=== PATIENT | male | born 1970 | race Caucasian/White ===

== ENCOUNTER 2024-04-15 22:03 | Observation (INO) ==
[2024-04-15 22:32] LABS: Basophils # (auto) 0.03 K/uL (0.00-0.20); Basophils % (auto) 0.3 %; Eosinophils # (auto) 0.12 K/uL (0.00-0.50); Hematocrit (blood only) 43.4 % (42.0-52.0); Hemoglobin 15.4 g/dl (14.0-18.0); Immature Granulocytes # (auto) 0.03 K/uL (0.01-0.20); Immature Granulocytes % (auto) 0.3 %; Lymphocytes # (auto) 1.99 K/uL (1.20-3.40); Lymphocytes % (auto) 17.4 %; Mean Corpuscular Hemoglobin 31.2 pg (25.0-34.0); Mean Corpuscular Hgb Conc 35.5 g/dL (32.0-36.0); Mean Platelet Volume 9.5 fL (9.4-12.4); Monocytes # (auto) 0.82 K/uL (0.11-0.59); Monocytes % (auto) 7.2 %; Neutrophils # (auto) 8.47 K/uL (1.40-6.50); Neutrophils % (auto) 73.8 %; Platelet Count 269 K/uL (130-400); RDW Coefficient of Variation 12.5 % (11.5-14.5); RDW Standard Deviation 40.2 fL (36.4-46.3); Red Blood Count 4.93 M/uL (4.70-6.10); White Blood Count 11.46 K/ul (4.8-10.8)
[2024-04-15 22:51] LABS: Alanine Aminotransferase 22 U/L (7-52); Albumin Globulin Ratio 1.6 (0.9-2); Albumin Level 4.5 gm/dl (3.4-5.0); Alkaline Phosphatase 56 U/L (34-104); Anion Gap 10 (3-11); Aspartate Aminotransferase 23 U/L (13-39); Bilirubin,Total 1.2 mg/dl (0.2-1.0); Blood Urea Nitrogen 16 mg/dl (6-23); Calcium 9.2 mg/dl (8.6-10.3); Carbon Dioxide 24 mmol/L (21-32); Chloride 103 mmol/L (98-107); Est GFR (African American) 91.4 ml/min; Est GFR (Non-African American) 78.8 ml/min; Globulin 2.9 gm/dl (2.5-4.0); Glucose 130 mg/dl (70-99(Fasting)); Lipase 45 U/L (11-82); Potassium 3.7 mmol/L (3.5-5.1); Sodium 137 mmol/L (136-145); Total Protein 7.4 gm/dl (6.0-8.3)
[2024-04-15 22:56] LABS: iSTAT Hemoglobin 15.6 g/dl (14.0-18.0); iSTAT Ionized Calcium 1.18 mmol/l (1.12-1.32); iSTAT Potassium 4.1 mmol/L (3.3-5.0)
[2024-04-15] MEDS: OPTIRAY 320 125ml IV ONE (22:56)
[2024-04-15 22:57] LABS: Troponin I High Sensitivity < 2.3 pg/ml (0-20)
[2024-04-15] MEDS: HYDROmorphone INJ 0.5 MG/0.5 ML SYR IV STA (23:02)
[2024-04-15] MEDS: ACETAMINOPHEN 1,000 MG/100 ML VIAL IV STA (23:03)
--- NOTE | 2024-04-15 23:21 | Emergency Department Note ---
Impression & Plan Atypical chest pain, Bradycardia ED Provider Note NAME: VALE BARRIOS AGE: 54 SEX: M : 1970 ARRIVES VIA: Walk-In INFORMANT: Patient, ED PROVIDER(S): Doe Coelho MD CHIEF COMPLAINT: Severe right arm pain HPI: This is a 54-year-old male presenting for right arm/shoulder pain. Patient to wrapping with his family later today. He thinks may have injured at this point. He notes this pain is very severe, he has had previous rotator cuff injury but this was not as severe as his current pain. He is currently diaphoretic, clutching his right chest/shoulder. He has extreme tenderness to the right shoulder joint. He notes pain in his chest as well. ROS: See above HPI for pertinent positives & negatives. A total of 10 systems reviewed and were otherwise negative. PHYSICAL EXAMINATION: General: Moderately uncomfortable, diaphoretic Head: Normocephalic and atraumatic Eyes: Normal inspection, extraocular muscles intact Ear, nose, throat: Normal external exam Neck: Normal range of motion Respiratory: lungs clear to auscultation bilaterally Cardiovascular: Regular rate/rhythm, no murmur GI: soft, nontender, no guarding or rebound Extremities: Extreme right shoulder pain with palpation Neuro: The patient awake and alert, appropriately conversive, no focal deficits, symmetric faces Skin: Warm, dry, and intact MEDICAL DECISION MAKING: This is a 54-year-old male presenting for right shoulder/arm pain. At this time he has 2+ pulses, neurovascular intact with some significant right shoulder pain. I called x-ray for immediate bedside imaging. -Chest Xray independently interpreted by me showing no pneumothorax, focal opacity, pleural effusions or widened mediastinum. -Shoulder x-ray as independent read by me does reveal a possible right AC separation -In an abundance of precaution with patient's extreme pain and symptoms, CTA dissection protocol was ordered of the chest. -Upon my initial read, I do not see a dissection -Official read reveals no intrathoracic abnormality including dissection -Patient given 0.5 mg of IV Dilaudid for pain -After administration of pain medication, patient became significant bradycardic into the high 30s and low 40s. He was diaphoretic, nauseous. Consider this as a vasovagal reaction to medication. Was given Reglan for nausea -During the bradycardia episode, patient on the monitor had with patient possible heart block with idioventricular rhythm, multiple beats without P waves, only ventricular beats. Patient placed on pads with crash cart nearby. -This is spontaneously resolved shortly afterwards. -Labs are reviewed showing a slight leukocytosis at 11.46 but otherwise no severe electrolyte abnormalities. No troponin elevation. -Due to this possible arrhythmia/bradycardia, will admit for further observation. Discussed case with Dr. Galdamez, hospitalist Differential diagnosis: ACS, dissection, PE, shoulder injury, rotator cuff tear, AC separation ER treatment provided: See below Diagnostics interpreted by me: ECG: ECG independently interpreted by me with normal sinus rhythm, rate of 69, normal axis, normal CT, normal QRS, normal QTc, no ST segment elevations consistent with STEMI criteria Cardiac Monitoring: An order was placed for continuous cardiac monitoring. The monitor shows a rate of with rhythm. Laboratory studies: As stated above and show below. Imaging studies: See below. Critical Care Note: I have personally spent 32 minutes of critical care time in the direct management of this patient. This includes bedside care, interpretation of diagnostic studies, and testing, discussion with consultants, patient, and family members, and other required patient management activities. This 32 minutes is in excess of all separately billable procedures. Past Med/Surg History Problem List (Updated 04/16/24 @ 01:14 by Doe Coelho MD) Bradycardia (Acute) Atypical chest pain (Acute) Social History Smoking Status: Current some day smoker Preferred Language: Zambian Feels Safe at Home: Yes Allergies Allergies Allergy/AdvReac Type Severity Reaction Status Date / Time No Known Allergies Allergy Verified 04/16/24 01:09 Home Meds Home Medications Medication Instructions Recorded Confirmed No Known Home Medications 04/16/24 04/16/24 Results & Data (ED) Vital Signs Vital Signs - 24 hr 04/15/24 22:05 04/15/24 22:12 04/15/24 22:18 Temperature 36.6 C Temperature Source Temporal Artery Scan Pulse Rate 77 71 Pulse Rate from SpO2 Sensor Respiratory Rate 22 Respiratory Effort / Characteristics Non-Labored Respiratory Depth Normal Blood Pressure 145/79 H Blood Pressure Mean 101 Pulse Oximetry 95 92 Oxygen Delivery Method Room Air Room Air Oxygen Flow Rate Sepsis Recent Fever Within 48 Hours No Sepsis New/Unexplained Change in Mental Status No Sepsis Action Taken by Nursing No Action Required Oxygen Flow Rate - Titration Pulse Oximetry Post Tiitration 04/15/24 23:12 04/15/24 23:25 04/15/24 23:26 Temperature Temperature Source Pulse Rate 72 44 L 47 L Pulse Rate from SpO2 Sensor 72 Respiratory Rate 17 Respiratory Effort / Characteristics Respiratory Depth Blood Pressure Blood Pressure Mean Pulse Oximetry 98 Oxygen Delivery Method Oxygen Flow Rate Sepsis Recent Fever Within 48 Hours Sepsis New/Unexplained Change in Mental Status Sepsis Action Taken by Nursing Oxygen Flow Rate - Titration Pulse Oximetry Post Tiitration 04/15/24 23:27 04/15/24 23:30 04/15/24 23:31 Temperature Temperature Source Pulse Rate 42 L 74 71 Pulse Rate from SpO2 Sensor 42 L 75 Respiratory Rate 18 26 H Respiratory Effort / Characteristics Respiratory Depth Blood Pressure 105/78 Blood Pressure Mean 87 Pulse Oximetry 88 L 96 Oxygen Delivery Method Oxygen Flow Rate Sepsis Recent Fever Within 48 Hours Sepsis New/Unexplained Change in Mental Status Sepsis Action Taken by Nursing Oxygen Flow Rate - Titration Pulse Oximetry Post Tiitration 04/15/24 23:43 04/16/24 00:00 Temperature Temperature Source Pulse Rate Pulse Rate from SpO2 Sensor 66 Respiratory Rate 16 Respiratory Effort / Characteristics Respiratory Depth Blood Pressure 122/75 Blood Pressure Mean 90 Pulse Oximetry 88 L 94 Oxygen Delivery Method Nasal Cannula Nasal Cannula Oxygen Flow Rate 0 2 Sepsis Recent Fever Within 48 Hours Sepsis New/Unexplained Change in Mental Status Sepsis Action Taken by Nursing Oxygen Flow Rate - Titration 2 Pulse Oximetry Post Tiitration 94 Laboratory Data 04/15/24 22:16 04/15/24 22:16 Lab Results 04/15/24 04/15/24 Range/Units 22:16 22:44 WBC 11.46 H (4.8-10.8) K/ul RBC 4.93 (4.70-6.10) M/uL Hgb 15.4 (14.0-18.0) g/dl POC Hgb 15.6 (14.0-18.0) g/dl Hct 43.4 (42.0-52.0) % POC Hct 46 (42-52) % MCV 88.0 (80.0-100.0) fL MCH 31.2 (25.0-34.0) pg MCHC 35.5 (32.0-36.0) g/dL RDW Std Deviation 40.2 (36.4-46.3) fL RDW Coeff of Carin 12.5 (11.5-14.5) % Plt Count 269 (130-400) K/uL MPV 9.5 (9.4-12.4) fL Immature Gran % (Auto) 0.3 % Neut % (Auto) 73.8 % Lymph % (Auto) 17.4 % [place] % (Auto) 7.2 % Eos % (Auto) 1.0 % Baso % (Auto) 0.3 % Neut # (Auto) 8.47 H (1.40-6.50) K/uL Lymph # (Auto) 1.99 (1.20-3.40) K/uL [place] # (Auto) 0.82 H (0.11-0.59) K/uL Eos # (Auto) 0.12 (0.00-0.50) K/uL Baso # (Auto) 0.03 (0.00-0.20) K/uL Immature Gran # (Auto) 0.03 (0.01-0.20) K/uL POC Sodium 137 (135-144) mmol/L Sodium 137 (136-145) mmol/L POC Potassium 4.1 (3.3-5.0) mmol/L Potassium 3.7 (3.5-5.1) mmol/L POC Chloride 103 (101-112) mmol/L Chloride 103 (98-107) mmol/L Carbon Dioxide 24 (21-32) mmol/L POC Total CO2 24 (24-31) mmol/L Anion Gap 10 (3-11) POC Anion Gap 15.0 L (16-25) mmol/L POC BUN 16 (7-18) mg/dl BUN 16 (6-23) mg/dl Creatinine 1.07 (0.6-1.4) mg/dl POC Creatinine 1.0 (0.6-1.3) mg/dl Est Cr Clr Drug Dosing Not Reportable Est GFR ( Amer) 91.4 ml/min Est GFR (Non-Af Amer) 78.8 ml/min BUN/Creatinine Ratio 15.0 (10-20) Glucose 130 H (70-99(Fasting)) mg/dl POC Glucose (other) 138 H (70-99) mg/dl Calcium 9.2 (8.6-10.3) mg/dl POC Ioniz Calcium Alyx 1.18 (1.12-1.32) mmol/l Magnesium 1.9 (1.7-2.4) mg/dl Total Bilirubin 1.2 H (0.2-1.0) mg/dl AST 23 (13-39) U/L ALT 22 (7-52) U/L Alkaline Phosphatase 56 (34-104) U/L Troponin I High Sens < 2.3 (0-20) pg/ml Total Protein 7.4 (6.0-8.3) gm/dl Albumin 4.5 (3.4-5.0) gm/dl Globulin 2.9 (2.5-4.0) gm/dl Albumin/Globulin Ratio 1.6 (0.9-2) Lipase 45 (11-82) U/L TSH 1.124 (0.300-4.500) uIu/ml Administered Medications Discontinued Medications Hydromorphone HCl (Hydromorphone Inj 0.5 Mg/0.5 Ml Syr) 0.5 mg IV NOW STA Stop: 04/15/24 22:46 Last Admin: 04/15/24 23:02 Dose: 0.5 mg Documented By: AUSTIN Acetaminophen (Ofirmev) 1,000 mg in 100 mls @ 400 mls/hr IV NOW STA Stop: 04/15/24 23:00 Last Infusion: 04/15/24 23:46 Dose: Infused Documented By: Admin: 04/15/24 23:03 Dose: 400 mls/hr Documented By: AUSTIN Ioversol (Optiray 320 125ml) 125 ml IV ONCE ONE Stop: 04/15/24 22:57 Last Admin: 04/15/24 22:56 Dose: 120 ml Documented By: CAMILLE Metoclopramide HCl (Metoclopramide Hcl Inj 5 Mg/Ml 2 Ml Vial) Confirm Administered Dose 10 mg .ROUTE .STK-MED ONE Stop: 04/15/24 23:31 Last Admin: 04/15/24 23:31 Dose: 10 mg Documented By: AUSTIN Imaging Data Radiologist's Impression: Chest CTA 04/15/24 22:41 Exam(s): CTA CHEST W/WO Contrast IV Amt: 120 ML OPTIRAY 320 EXAM: CT Angiography Chest Without and With Intravenous Contrast CLINICAL HISTORY: Reason for exam: Dissection, R shoulder/neck pain. TECHNIQUE: Axial computed tomographic angiography images of the chest without and with intravenous contrast. CTDI is 28 mGy and DLP is 1910 mGy-cm. Automated exposure control was utilized for the study. A dose lowering technique was utilized adhering to the principles of ALARA. MIP reconstructed images were created and reviewed. CONTRAST: Patient received 120 ML OPTIRAY 320 of IV contrast COMPARISON: No relevant prior studies available. FINDINGS: Pulmonary arteries: Adequate pulmonary artery opacification. Borderline enlarged central pulmonary artery suggesting mild pulmonary arterial hypertension. No evidence of pulmonary embolism. Aorta: No aortic intramural hematoma, aneurysm, or dissection. Bovine aortic arch branch anatomy with patent great vessels. Lungs: Unremarkable. No airspace consolidation. No pulmonary mass. Pleural space: Unremarkable. No pleural effusion. No pneumothorax. Heart: No cardiomegaly. Coronary artery atherosclerosis. No significant RV strain. No pericardial effusion. Thyroid: Unremarkable. Normal thyroid gland. Bones/joints: No acute fracture. No dislocation. Soft tissues: Unremarkable. Lymph nodes: Unremarkable. No lymphadenopathy. Liver: Multiple benign hepatic cysts. Additional subcentimeter hepatic lesions which are too small to characterize. IMPRESSION: No acute findings. No evidence of aortic aneurysm or dissection. Electronically signed by: Bartolo Bullock M.D. 04/15/24 23:23 PM Discharge Plan Visit Data Chief Complaint: Chest Pain Stated Complaint: CHEST PAIN, RT ARM PAIN, LIGHTHEADED ED Provider: Doe Coelho Discharge Problem: Atypical chest pain, Bradycardia Forms Stand Alone Forms: [employer] Prescriptions Prescriptions: No Action No Known Home Medications Referrals Referrals: PCP,NO [Physician] -
--- NOTE | 2024-04-15 23:24 | CT Scan Report ---
Exam(s): CTA CHEST W/WO Contrast IV Amt: 120 ML OPTIRAY 320 EXAM: CT Angiography Chest Without and With Intravenous Contrast CLINICAL HISTORY: Reason for exam: Dissection, R shoulder/neck pain. TECHNIQUE: Axial computed tomographic angiography images of the chest without and with intravenous contrast. CTDI is 28 mGy and DLP is 1910 mGy-cm. Automated exposure control was utilized for the study. A dose lowering technique was utilized adhering to the principles of ALARA. MIP reconstructed images were created and reviewed. CONTRAST: Patient received 120 ML OPTIRAY 320 of IV contrast COMPARISON: No relevant prior studies available. FINDINGS: Pulmonary arteries: Adequate pulmonary artery opacification. Borderline enlarged central pulmonary artery suggesting mild pulmonary arterial hypertension. No evidence of pulmonary embolism. Aorta: No aortic intramural hematoma, aneurysm, or dissection. Bovine aortic arch branch anatomy with patent great vessels. Lungs: Unremarkable. No airspace consolidation. No pulmonary mass. Pleural space: Unremarkable. No pleural effusion. No pneumothorax. Heart: No cardiomegaly. Coronary artery atherosclerosis. No significant RV strain. No pericardial effusion. Thyroid: Unremarkable. Normal thyroid gland. Bones/joints: No acute fracture. No dislocation. Soft tissues: Unremarkable. Lymph nodes: Unremarkable. No lymphadenopathy. Liver: Multiple benign hepatic cysts. Additional subcentimeter hepatic lesions which are too small to characterize. IMPRESSION: No acute findings. No evidence of aortic aneurysm or dissection. Electronically signed by: Bartolo Bullock M.D. 04/15/24 23:23 PM
[2024-04-15] MEDS: METOCLOPRAMIDE HCL INJ 5 MG/ML 2 ML VIAL ONE (23:31)
[2024-04-16] MEDS ORDERED: PROMETHAZINE HCL 12.5 MG in SODIUM CHLORIDE 0.9% 50 ML IV PRN (00:31)
[2024-04-16] MEDS ORDERED: oxyCODONE HCL IR 5 MG TAB (IMMEDIATE RELEASE) PO PRN (00:31)
[2024-04-16] MEDS ORDERED: ACETAMINOPHEN 325 MG TAB PO PRN (00:31)
[2024-04-16] MEDS ORDERED: KETOROLAC TROMETHAMINE 15 MG/ML VIAL IM PRN (00:32)
[2024-04-16 00:55] LABS: Magnesium 1.9 mg/dl (1.7-2.4)
[2024-04-16 01:11] LABS: Thyroid Stimulating Hormone 1.124 uIu/ml (0.300-4.500)
[2024-04-16] MEDS: Patient's ALLERGY Info needs ENTERED STA (01:18)
--- NOTE | 2024-04-16 01:56 | History & Physical Report ---
Date of Service April 16, 2024 Assessment & Plan (1) Bradycardia: Plan: transient bradycardia possible vagal reaction following nausea symptoms from Dilaudid Patient currently comfortable Right shoulder pain Possible RCT injury Past tobacco abuse OBS PCU Hold Dilaudid for now Atropine as needed symptomatic bradycardia Cardiology consult Re: Symptomatic bradycardia Orthopedics consult Re: Right shoulder pain DVT prophylaxis. Lovenox subcu Full code Text document was generated using MYR voice recognition software. It may contain grammatical or spelling errors. Kindly contact undersigned for clarification of any documentation item in q uestion. History of Present Illness Chief Complaint: Right shoulder pain Primary Care Provider: TORRIE LOERA History obtained from patient and records. Medical history significant for past tobacco abuse. 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 Achy right shoulder pain radiating to the chest yesterday similar to rotator cuff tear on the left shoulder in the past. Possibly related to kayaking activity with family over the weekend. No shortness of breath, no fever, no chills no headache. Patient consulted ER last night. Patient became nauseous 30 minutes after Dilaudid administration at the ER. Heart rate 30s to 40s. Junctional bradycardia as per ekg monitor tech Patient felt like he was going to pass out. Denies chest pain or SOB. Patient looked pale and diaphoretic as per staff. Patient currently comfortable. Heart rate 60s. 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 [employer] Allergies Allergy/AdvReac Type Severity Reaction Status Date / Time hydromorphone [From Dilaudid] AdvReac Intermediate nausea Verified 04/16/24 05:11 Home Medications Medication Instructions Recorded Confirmed Type No Known Home Medications 04/16/24 04/16/24 History Past Med/Surg History Problem List (Updated 04/16/24 @ 01:14 by Doe Coelho MD) Bradycardia (Acute) Atypical chest pain (Acute) Social History Smoking Status: Former smoker Preferred Language: Nepali Communication Ability: Effective Food Technician Required: No Beliefs That Will Affect Care: None Current Living Situation: Alone Feels Safe at Home: Yes Assistive Devices: None Review of Systems Review of Systems: As per HPI, all other systems reviewed and negative Physical Exam Physical Exam: GENERAL: Comfortable, pleasant, obese, no respiratory distress SKIN: Normal color, warm HEENT: Partial alopecia, pink palpebral conjunctivae, no ptosis, dry buccal mucosa NECK : Supple, no tenderness CHEST : CTA, no tenderness HEART : RRR, no obvious murmurs ABDOMEN: Some distention, nontender EXTREMITIES : No LE swelling/tenderness, sling over RUE, RUE shoulder tenderness NEUROLOGIC : Coherent, no facial asymmetry, no other gross focality Results & Data Results & Data Vital Signs (Past 12 Hours) Vital Signs Temp Pulse Resp BP Pulse Ox O2 Del Method O2 Flow Rate 04/16/24 00:00 16 122/75 94 Nasal Cannula 2 04/15/24 23:43 88 L Nasal Cannula 0 04/15/24 23:31 71 04/15/24 23:30 74 26 H 105/78 96 04/15/24 23:27 42 L 18 88 L 04/15/24 23:26 47 L 04/15/24 23:25 44 L 04/15/24 23:12 72 17 98 04/15/24 22:18 71 04/15/24 22:12 92 Room Air 04/15/24 22:05 36.6 C 77 22 145/79 H 95 Room Air Laboratory Results Laboratory Results WBC 11.46 K/ul (4.8-10.8) H 04/15/24 22:16 RBC 4.93 M/uL (4.70-6.10) 04/15/24 22:16 Hgb 15.4 g/dl (14.0-18.0) 04/15/24 22:16 POC Hgb 15.6 g/dl (14.0-18.0) 04/15/24 22:44 Hct 43.4 % (42.0-52.0) 04/15/24 22:16 POC Hct 46 % (42-52) 04/15/24 22:44 MCV 88.0 fL (80.0-100.0) 04/15/24 22:16 MCH 31.2 pg (25.0-34.0) 04/15/24 22:16 MCHC 35.5 g/dL (32.0-36.0) 04/15/24 22:16 RDW Std Deviation 40.2 fL (36.4-46.3) 04/15/24 22:16 RDW Coeff of Carin 12.5 % (11.5-14.5) 04/15/24 22:16 Plt Count 269 K/uL (130-400) 04/15/24 22:16 MPV 9.5 fL (9.4-12.4) 04/15/24 22:16 Immature Gran % (Auto) 0.3 % 04/15/24 22:16 Neut % (Auto) 73.8 % 04/15/24 22:16 Lymph % (Auto) 17.4 % 04/15/24 22:16 [place] % (Auto) 7.2 % 04/15/24 22:16 Eos % (Auto) 1.0 % 04/15/24 22:16 Baso % (Auto) 0.3 % 04/15/24 22:16 Neut # (Auto) 8.47 K/uL (1.40-6.50) H 04/15/24 22:16 Lymph # (Auto) 1.99 K/uL (1.20-3.40) 04/15/24 22:16 [place] # (Auto) 0.82 K/uL (0.11-0.59) H 04/15/24 22:16 Eos # (Auto) 0.12 K/uL (0.00-0.50) 04/15/24 22:16 Baso # (Auto) 0.03 K/uL (0.00-0.20) 04/15/24 22:16 Immature Gran # (Auto) 0.03 K/uL (0.01-0.20) 04/15/24 22:16 POC Sodium 137 mmol/L (135-144) 04/15/24 22:44 Sodium 137 mmol/L (136-145) 04/15/24 22:16 POC Potassium 4.1 mmol/L (3.3-5.0) 04/15/24 22:44 Potassium 3.7 mmol/L (3.5-5.1) 04/15/24 22:16 POC Chloride 103 mmol/L (101-112) 04/15/24 22:44 Chloride 103 mmol/L (98-107) 04/15/24 22:16 Carbon Dioxide 24 mmol/L (21-32) 04/15/24 22:16 POC Total CO2 24 mmol/L (24-31) 04/15/24 22:44 Anion Gap 10 (3-11) 04/15/24 22:16 POC Anion Gap 15.0 mmol/L (16-25) L 04/15/24 22:44 POC BUN 16 mg/dl (7-18) 04/15/24 22:44 BUN 16 mg/dl (6-23) 04/15/24 22:16 Creatinine 1.07 mg/dl (0.6-1.4) 04/15/24 22:16 POC Creatinine 1.0 mg/dl (0.6-1.3) 04/15/24 22:44 Est Cr Clr Drug Dosing Not Reportable 04/15/24 22:16 Est GFR ( Amer) 91.4 ml/min 04/15/24 22:16 Est GFR (Non-Af Amer) 78.8 ml/min 04/15/24 22:16 BUN/Creatinine Ratio 15.0 (10-20) 04/15/24 22:16 Glucose 130 mg/dl (70-99(Fasting)) H 04/15/24 22:16 POC Glucose (other) 138 mg/dl (70-99) H 04/15/24 22:44 Calcium 9.2 mg/dl (8.6-10.3) 04/15/24 22:16 POC Ioniz Calcium Alyx 1.18 mmol/l (1.12-1.32) 04/15/24 22:44 Magnesium 1.9 mg/dl (1.7-2.4) 04/15/24 22:16 Total Bilirubin 1.2 mg/dl (0.2-1.0) H 04/15/24 22:16 AST 23 U/L (13-39) 04/15/24 22:16 ALT 22 U/L (7-52) 04/15/24 22:16 Alkaline Phosphatase 56 U/L (34-104) 04/15/24 22:16 Troponin I High Sens < 2.3 pg/ml (0-20) 04/15/24 22:16 Total Protein 7.4 gm/dl (6.0-8.3) 04/15/24 22:16 Albumin 4.5 gm/dl (3.4-5.0) 04/15/24 22:16 Globulin 2.9 gm/dl (2.5-4.0) 04/15/24 22:16 Albumin/Globulin Ratio 1.6 (0.9-2) 04/15/24 22:16 Lipase 45 U/L (11-82) 04/15/24 22:16 TSH 1.124 uIu/ml (0.300-4.500) 04/15/24 22:16 Impressions Chest CTA 04/15/24 22:41 Exam(s): CTA CHEST W/WO Contrast IV Amt: 120 ML OPTIRAY 320 EXAM: CT Angiography Chest Without and With Intravenous Contrast CLINICAL HISTORY: Reason for exam: Dissection, R shoulder/neck pain. TECHNIQUE: Axial computed tomographic angiography images of the chest without and with intravenous contrast. CTDI is 28 mGy and DLP is 1910 mGy-cm. Automated exposure control was utilized for the study. A dose lowering technique was utilized adhering to the principles of ALARA. MIP reconstructed images were created and reviewed. CONTRAST: Patient received 120 ML OPTIRAY 320 of IV contrast COMPARISON: No relevant prior studies available. FINDINGS: Pulmonary arteries: Adequate pulmonary artery opacification. Borderline enlarged central pulmonary artery suggesting mild pulmonary arterial hypertension. No evidence of pulmonary embolism. Aorta: No aortic intramural hematoma, aneurysm, or dissection. Bovine aortic arch branch anatomy with patent great vessels. Lungs: Unremarkable. No airspace consolidation. No pulmonary mass. Pleural space: Unremarkable. No pleural effusion. No pneumothorax. Heart: No cardiomegaly. Coronary artery atherosclerosis. No significant RV strain. No pericardial effusion. Thyroid: Unremarkable. Normal thyroid gland. Bones/joints: No acute fracture. No dislocation. Soft tissues: Unremarkable. Lymph nodes: Unremarkable. No lymphadenopathy. Liver: Multiple benign hepatic cysts. Additional subcentimeter hepatic lesions which are too small to characterize. IMPRESSION: No acute findings. No evidence of aortic aneurysm or dissection. Electronically signed by: Bartolo Bullock M.D. 04/15/24 23:23 PM Diagnostic Findings EKG as per my interpretation : Rate 65, NSR, normal axis, no ischemia
[2024-04-16] MEDS ORDERED: ATROPINE SULFATE 0.1 MG/ML 10ML SYR IV PRN (01:59)
[2024-04-16] MEDS: KETOROLAC TROMETHAMINE 15 MG/ML VIAL IV PRN (02:08)
[2024-04-16] MEDS: NSS + 20MEQ KCL 20 MEQ/1,000 ML BAG IV ONE (02:17)
[2024-04-16] MEDS: MAGNESIUM SULFATE / D5W 1 GM/100 ML BAG IV ONE (02:17)
[2024-04-16 04:02] LABS: Basophils # (auto) 0.02 K/uL (0.00-0.20); Basophils % (auto) 0.2 %; Eosinophils # (auto) 0.02 K/uL (0.00-0.50); Eosinophils % (auto) 0.2 %; Hematocrit (blood only) 43.4 % (42.0-52.0); Immature Granulocytes # (auto) 0.02 K/uL (0.01-0.20); Immature Granulocytes % (auto) 0.2 %; Lymphocytes # (auto) 1.52 K/uL (1.20-3.40); Lymphocytes % (auto) 16.3 %; Mean Corpuscular Hemoglobin 30.7 pg (25.0-34.0); Mean Corpuscular Hgb Conc 34.6 g/dL (32.0-36.0); Mean Corpuscular Volume 88.9 fL (80.0-100.0); Mean Platelet Volume 9.5 fL (9.4-12.4); Monocytes # (auto) 0.67 K/uL (0.11-0.59); Monocytes % (auto) 7.2 %; Neutrophils % (auto) 75.9 %; Platelet Count 256 K/uL (130-400); RDW Coefficient of Variation 12.6 % (11.5-14.5); RDW Standard Deviation 41.1 fL (36.4-46.3); Red Blood Count 4.88 M/uL (4.70-6.10); White Blood Count 9.35 K/ul (4.8-10.8)
[2024-04-16 04:05] LABS: BUN Creatinine Ratio 18.6 (10-20); Calcium 8.8 mg/dl (8.6-10.3); Creatinine Clr Calc Pharmacy 105.9 ml/min; Est GFR (African American) 102.9 ml/min; Est GFR (Non-African American) 88.8 ml/min; Potassium 4.2 mmol/L (3.5-5.1)
--- NOTE | 2024-04-16 07:00 | XRay Report ---
XR chest 1V portable HISTORY: 54 years-old Male Chest pain, nonspecific COMPARISON: CTA chest of same day TECHNIQUE: AP view of the chest FINDINGS: Cardiomediastinal and hilar silhouettes are within normal limits. No pneumothorax, pleural effusion, airspace consolidation or pulmonary edema. Bones appear grossly intact. IMPRESSION: No acute process. ACT 112: Negative or not required by law. The above report was generated using voice recognition software. It may contain grammatical, syntax o r spelling errors. Electronically signed by: Manuelito Rubin M.D. 04/16/2024 6:58 AM
[2024-04-16 07:07] LABS: Estimated Average Glucose 108 mg/dl; Hemoglobin A1C 5.4 % (4.5-5.6)
--- NOTE | 2024-04-16 07:07 | XRay Report ---
XR shoulder RT min 2V routine HISTORY: 54 years-old Male pain acute pain of the right shoulder without reported trauma COMPARISON: CTA chest of same day TECHNIQUE: 2 views of the right shoulder FINDINGS: Moderate degeneration of the AC joint. No significant glenohumeral osteoarthritis. No acute fracture, dislocation or osseous erosion. The imaged lung giang appear clear. IMPRESSION: 1. No acute fracture or dislocation. 2. Moderate osteoarthritis of the AC joint. ACT 112: Negative or not required by law. The above report was generated using voice recognition software. It may contain grammatical, syntax o r spelling errors. Electronically signed by: Manuelito Rubin M.D. 04/16/2024 7:05 AM
--- NOTE | 2024-04-16 07:39 | Orthopedic Consultation ---
<Statement entered by Isai Finney MD - 04/16/24 08:33> Images and the case were reviewed. I discussed this directly with the physician help desk assistant. I agree with the note. Likely this is a combination of bursitis and AC arthritis from overuse. Can be managed with anti-inflammatories, rest, ice. Consider for oral 10 or 12-day prednisone taper to manage acute pain until he can return to outpatient care. Date of Service April 16, 2024 Assessment & Plan (1) Acute pain of right shoulder: - Exam limited due to patient pain, however does seem to have discomfort in the AC joint. -White count has been improving since yesterday. -No urgent orthopedic intervention indicated at this time. May follow-up as an outpatient. He does live in [place], and is planning to follow-up back home. -Sling for comfort at this time. -If tolerated, would recommend oral steroids upon discharge. -X-rays reassuring for no acute abnormality. May increase his range of motion as tolerated. -Thank you for the consult. Please reach out to orthopedics any other questions or concerns. History of Present Illness Reason for Consultation: acute right shoulder pain Requesting Physician: . Attending Physician: Antonio Bowman MD Vini is a [id number] 54-year-old male who reports to the emergency department yesterday on 04/15/2024 for acute right shoulder pain. He states that he does not recall any specific injury to the right shoulder or any right shoulder issues prior to this, however he does state that the shoulder pain gradually came on and got worse Monday morning into Monday evening prompting him to report to the emergency department on Monday. He states that he has had shoulder issues in his left shoulder in the past where he had a rotator cuff tear, however this does feel different and is more intense in pain. He states that he specifically has issues with range of motion of his right shoulder. He does state that this past weekend, he was rafting/tubing with his kids who are in their early teens and feels that he did get pulled around quite a bit. He is unsure if this elicited any discomfort. While in the emergency department yesterday, he did have a bradycardic episode. He is currently being held for observation in light of the cardiac issues. He feels it is from the pain medications that he was given. At today's visit, he states he is feeling well. States that his shoulder pain is slowly improving but is still quite bothersome to him. He states that he lives in [facility] and is here on work. 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 He states that he will be going home in 1 week and is planning to follow-up with his primary care/orthopedic provider back home. He denies any fever, chills or constitutional symptoms. He also denies any recent tick bites, history of Lyme disease. He denies any numbness or tingling in the right upper extremity. Allergies Allergy/AdvReac Type Severity Reaction Status Date / Time hydromorphone [From Dilaudid] AdvReac Intermediate nausea Verified 04/16/24 05:11 Home Medications Medication Instructions Recorded Confirmed Type No Known Home Medications 04/16/24 04/16/24 History Past Med/Surg History Problem List (Updated 04/16/24 @ 07:51 by Cassie Pandey PA-C) Acute pain of right shoulder Bradycardia (Acute) Atypical chest pain (Acute) Social History Smoking Status: Former smoker Preferred Language: Czech Communication Ability: Effective Airveyor Operator Required: No Beliefs That Will Affect Care: None Current Living Situation: Alone Feels Safe at Home: Yes Assistive Devices: None Review of Systems All systems reviewed & are unremarkable except as noted in HPI & below. Physical Exam Upon my visit, the patient has the lights off and is resting in the hospital bed. Vital signs are stable. He does not appear ill, pale or diaphoretic at my visit. He is able to sit up for a shoulder exam. Please see shoulder exam below. Constitutional General: Alert and oriented. In no acute distress. Musculoskeletal Right shoulder: Exam was limited due to patient pain. Inspection unremarkable. No obvious deformities noted. He is quite tender to the AC joint as well as the lateral shoulder. Did perform passive and active assisted range of motion. With active assisted range of motion, he has much discomfort with cross body adduction. He is able to perform external rotation independently without discomfort. I was able to guide him with forward flexion and abduction. We were able to get him to about 110 degrees abduction with some discomfort. He felt the pain was less significant when I guided him with range of motion. Strength testing did show deficits, however difficult to say if this is due to the patient's pain or actual notable rotator cuff weakness. Sensation intact. Distal pulses palpated. Capillary for less than 3 seconds. Results & Data Results & Data Laboratory Results . Laboratory Results - last 24 hr 04/15/24 04/15/24 04/16/24 22:16 22:44 03:34 WBC 11.46 H 9.35 RBC 4.93 4.88 Hgb 15.4 15.0 POC Hgb 15.6 Hct 43.4 43.4 POC Hct 46 MCV 88.0 88.9 MCH 31.2 30.7 MCHC 35.5 34.6 RDW Std Deviation 40.2 41.1 RDW Coeff of Carin 12.5 12.6 Plt Count 269 256 MPV 9.5 9.5 Immature Gran % (Auto) 0.3 0.2 Neut % (Auto) 73.8 75.9 Lymph % (Auto) 17.4 16.3 [place] % (Auto) 7.2 7.2 Eos % (Auto) 1.0 0.2 Baso % (Auto) 0.3 0.2 Neut # (Auto) 8.47 H 7.10 H Lymph # (Auto) 1.99 1.52 [place] # (Auto) 0.82 H 0.67 H Eos # (Auto) 0.12 0.02 Baso # (Auto) 0.03 0.02 Immature Gran # (Auto) 0.03 0.02 POC Sodium 137 Sodium 137 135 L POC Potassium 4.1 Potassium 3.7 4.2 POC Chloride 103 Chloride 103 103 Carbon Dioxide 24 25 POC Total CO2 24 Anion Gap 10 7 POC Anion Gap 15.0 L POC BUN 16 BUN 16 18 Creatinine 1.07 0.97 POC Creatinine 1.0 Est Cr Clr Drug Dosing Not Reportable 105.9 Est GFR ( Amer) 91.4 102.9 Est GFR (Non-Af Amer) 78.8 88.8 BUN/Creatinine Ratio 15.0 18.6 Glucose 130 H 144 H POC Glucose (other) 138 H Estimat Average Glucose Hemoglobin A1c Calcium 9.2 8.8 POC Ioniz Calcium Alyx 1.18 Magnesium 1.9 Total Bilirubin 1.2 H AST 23 ALT 22 Alkaline Phosphatase 56 Troponin I High Sens < 2.3 Total Protein 7.4 Albumin 4.5 Globulin 2.9 Albumin/Globulin Ratio 1.6 Lipase 45 TSH 1.124 04/16/24 Unknown WBC RBC Hgb POC Hgb Hct POC Hct MCV MCH MCHC RDW Std Deviation RDW Coeff of Carin Plt Count MPV Immature Gran % (Auto) Neut % (Auto) Lymph % (Auto) [place] % (Auto) Eos % (Auto) Baso % (Auto) Neut # (Auto) Lymph # (Auto) [place] # (Auto) Eos # (Auto) Baso # (Auto) Immature Gran # (Auto) POC Sodium Sodium POC Potassium Potassium POC Chloride Chloride Carbon Dioxide POC Total CO2 Anion Gap POC Anion Gap POC BUN BUN Creatinine POC Creatinine Est Cr Clr Drug Dosing Est GFR ( Amer) Est GFR (Non-Af Amer) BUN/Creatinine Ratio Glucose POC Glucose (other) Estimat Average Glucose 108 Hemoglobin A1c 5.4 Calcium POC Ioniz Calcium Alyx Magnesium Total Bilirubin AST ALT Alkaline Phosphatase Troponin I High Sens Total Protein Albumin Globulin Albumin/Globulin Ratio Lipase TSH Diagnostic Findings Did review x-rays of the right shoulder that were performed on 04/15/2024. No obvious acute bony abnormalities, fractures or dislocations noted. There does seem to be some AC arthritic changes. May be a slight AC separation, however no previous x-rays to compare to. Glenohumeral joint is concentric and without displacement. PG Care Time/CCT Total # of Minutes Spent Total Time Spent with Patient: Total time spent is greater than 50% in coordination of care (as documented) at patient's floor/unit and/or counseling patient: Coding Level of Care Code 19558 IN/OBS CONSULT LVL 4,60M Diagnoses Acute pain of right shoulder M25.511
--- NOTE | 2024-04-16 08:28 | Cardiology Consultation ---
Date of Consultation April 16, 2024 Assessment & Plan (1) Acute pain of right shoulder: (2) Bradycardia: (3) Vasovagal reaction: Plan 54-year-old male who presented to [facility] on April 15, 2024 with significant musculoskeletal right shoulder discomfort. Following administration of the IV hydromorphone in the ER for the severe pain, Mr. Reyes experienced diaphoresis, nausea, vomiting. Telemetry at that time revealed transient sinus bradycardia and a few beats of junctional bradycardia likely representing a vasovagal reaction and/or adverse reaction to IV hydromorphone. Continuous hospital monitor thereafter revealed sinus rhythm without further bradyarrhythmias, high degree heart block, atrial arrhythmias such as atrial fibrillation/flutter, or ventricular arrhythmias. EKG without acute change. High-sensitivity troponin negative. TSH within normal limits. Lyme screen requested to be thorough along with resting echocardiography. Outpatient considerations to include ambulatory electrocardiogram, further evaluation of the possible pulmonary arterial hypertension, and consideration for the addition of aspirin and statin noting the coronary/aortic atherosclerosis observed on CT scan. I think it may be best to hold off on adding aspirin at this point since the patient may be treated with NSAID's and Prednisone for the acute right shoulder issues. I spent a total of 55 minutes on the date of service in preparation, delivery, and documentation of the care provided to this patient excluding any time spent in the performance of separately billed services. This visit was a split-shared visit with the substantive portion of the medical decision making performed by the supervising senior oracle adf developer/billing provider. Supervising Physician Co-Signing Physician Notes Attending attestation: Case reviewed with the advanced practitioner. I have personally performed a history and physical examination on the patient. I have reviewed the advanced practitioner's documentation on the date of service referenced in note, and I agree with, and take responsibility for the plan of care. Transient bradycardia in the setting of high vagal tone. Lyme screen is negative. Echocardiogram reveals no structural heart disease, normal biventricular systolic function, no evidence of pulmonary hypertension. Orthopedic input noted and appreciated. Patient stable from a cardiac perspective for discharge. Given findings of mild coronary artery calcification in the circumflex coronary artery territory noted on CT, recommend outpatient follow-up with primary care back in [place] with regards to consideration of starting low-dose aspirin 81 mg daily and statin therapy for prevention purposes. I think it is most appropriate to avoid adding these medications at present with his acute shoulder pain and follow this up as an outpatient with cholesterol panel then. I spent a total of 20 minutes coordinating, documenting, and providing care for this patient excluding time spent in the performance of separately billed services or time spent by another provider. Russell Thompson DO History of Present Illness Reason for Consultation: Symptomatic bradycardia Requesting Physician: Dr. Oh Attending Physician: Dr. Bowman History of Present Illness Mr. Vini Reyes is a 54-year-old male from [place], [place] who was canoeing the [employer] on Monday, March 14, 2024. On Monday he started to have some right shoulder discomfort. Yesterday, while at work, he experienced progressive right shoulder discomfort and had difficulty doing any type of movement with the right upper extremity. He notes taking 800 mg of Motrin without benefit. He notes that the discomfort, which was associated with diaphoresis, lightheadedness, and heat sweats, was way worse than the pain he experienced when he previously tore the rotator cuff on the left. Ultimately, Eugenio Lindsey presented to the [facility] ER for further evaluation and treatment. The shoulder area was tender to palpation. Imaging included a shoulder x-ray showed no acute fracture or dislocation, revealing moderate osteoarthritis of the AC joint. Chest x-ray revealed no acute process. CTA of the chest showed no acute issues, specifically no evidence of aortic aneurysm or dissection. The central pulmonary artery was borderline enlarged suggesting mild pulmonary ar terial hypertension. Coronary artery atherosclerosis and aortic atherosclerosis observed. EKG showed no acute change, revealing normal sinus rhythm at 67 bpm with a normal W[place] interval, normal QRS duration, normal QTc (416 ms). High- sensitivity troponin negative at less than 2.3 pg/mL. In the ER the patient was given 0.5 mg of hydromorphone for pain. Shortly thereafter receiving the IV hydromorphone he developed significant nausea, vomiting, and diaphoresis. Telemetry at that time revealed sinus bradycardia into the 30s and a few junctional beats. Sinus bradycardia/junctional bradycardia noted on telemetry from 23:22:46 to 23:27:41 then with resolve. Thereafter, telemetry review sinus rhythm throughout, without further bradycardia, high degree heart block, pauses, atrial, or ventricular arrhythmias. Patient is currently in sinus rhythm at 88 bpm. Patient notes ongoing right shoulder discomfort. Patient denies prior cardiac history. No history of CAD, GA, CHF, arrhythmia, heart murmur, rheumatic fever, or scarlet fever. Patient notes cleaning up his diet and reducing alcohol intake, losing 40 pounds last year with improvement in exercise tolerance. Patient is active to his level preference without cardiopulmonary limitation. 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 No activity related chest pain. No new or worsening shortness of breath. No palpitations. No syncope. No history of hypertension, dyslipidemia, type 2 diabetes mellitus, family history of premature CAD, family history of sudden cardiac . Past Medical and Surgical History: Back surgery, L4-5, in his late 20s Nasal surgery, deviated septum Family History: He describes his father as a heavy drinker and smoker, with history of CAD. Mother with dementia. 2 brothers without cardiac issues. Social History: Reformed smoker having quit in the . Prior heavy alcohol use, improved. No recent illegal/illicit drug use, previously smoking [employer]. 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 Lives in [place], [place]. 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 Physical Exam Physical Exam: General: A&Ox3. NAD. HENT: Normocephalic. Atraumatic. Eyes: PER. Conjunctiva pink, sclera clear. Neck: No carotid bruits. No JVD. No HJR. Heart: RRR. Grade I/ systolic murmur heard at the left mid sternal border. No diastolic murmur. No rub. No gallop. PMI is nondisplaced. Lungs: Clear to auscultation. Abdomen: +BS. Soft. Nontender. No masses or organomegaly. Extremities: Patient winces in pain with movement of the right upper extremity. No clubbing, cyanosis, or edema. Limited neurological examination is without focal deficits. Pulses: radial=2/4, posterior tibial=2/4. Results & Data Vital Signs (Past 12 Hours) Vital Signs Temp Pulse Pulse Resp BP BP Pulse Ox 04/16/24 07:03 63 04/16/24 04:00 69 19 128/77 96 04/16/24 03:00 60 18 119/72 93 04/16/24 02:32 04/16/24 02:00 58 L 18 143/79 H 97 04/16/24 00:00 16 122/75 94 04/15/24 23:43 88 L 04/15/24 23:31 71 04/15/24 23:30 74 26 H 105/78 96 04/15/24 23:27 42 L 18 88 L 04/15/24 23:26 47 L 04/15/24 23:25 44 L 04/15/24 23:12 72 17 98 04/15/24 22:18 71 04/15/24 22:12 92 04/15/24 22:05 36.6 C 77 22 145/79 H 95 Pulse Ox O2 Del Method O2 Del Method O2 Flow Rate 04/16/24 07:03 04/16/24 04:00 Room Air 04/16/24 03:00 Room Air 04/16/24 02:32 96 Room Air 04/16/24 02:00 Nasal Cannula 2 04/16/24 00:00 Nasal Cannula 2 04/15/24 23:43 Nasal Cannula 0 04/15/24 23:31 04/15/24 23:30 04/15/24 23:27 04/15/24 23:26 04/15/24 23:25 04/15/24 23:12 04/15/24 22:18 04/15/24 22:12 Room Air 04/15/24 22:05 Room Air Laboratory Results Cardiac Enzymes 04/15/24 Range/Units 22:16 AST 23 (13-39) U/L Troponin I High Sens < 2.3 (0-20) pg/ml CBC 04/15/24 04/16/24 Range/Units 22:16 03:34 WBC 11.46 H 9.35 (4.8-10.8) K/ul RBC 4.93 4.88 (4.70-6.10) M/uL Hgb 15.4 15.0 (14.0-18.0) g/dl Hct 43.4 43.4 (42.0-52.0) % Plt Count 269 256 (130-400) K/uL Neut # (Auto) 8.47 H 7.10 H (1.40-6.50) K/uL Lymph # (Auto) 1.99 1.52 (1.20-3.40) K/uL Early # (Auto) 0.82 H 0.67 H (0.11-0.59) K/uL Eos # (Auto) 0.12 0.02 (0.00-0.50) K/uL Baso # (Auto) 0.03 0.02 (0.00-0.20) K/uL Comprehensive Metabolic Panel 04/15/24 04/16/24 Range/Units 22:16 03:34 Sodium 137 135 L (136-145) mmol/L Potassium 3.7 4.2 (3.5-5.1) mmol/L Chloride 103 103 (98-107) mmol/L Carbon Dioxide 24 25 (21-32) mmol/L BUN 16 18 (6-23) mg/dl Creatinine 1.07 0.97 (0.6-1.4) mg/dl Glucose 130 H 144 H (70-99(Fasting)) mg/dl Calcium 9.2 8.8 (8.6-10.3) mg/dl AST 23 (13-39) U/L ALT 22 (7-52) U/L Alkaline Phosphatase 56 (34-104) U/L Total Protein 7.4 (6.0-8.3) gm/dl Albumin 4.5 (3.4-5.0) gm/dl Intake and Output 04/15/24 04/16/24 04/16/24 22:59 06:59 14:59 Intake Total 200 / 200 Balance 200 / 200 Intake: IV 200 / 200 Acetaminophen 1,000 mg In 100 100 / 100 ml @ 400 mls/hr IV NOW STA Rx#: [id number] Magnesium Sulfate / D5w 1 gm In 100 / 100 100 ml @ 50 mls/hr IV ONE ONE Rx#:[id number] Other: Weight 99.6 kg Weight Measurement Method Built in [facility]
[2024-04-16] MEDS: ENOXAPARIN INJ 40 MG/0.4 ML SYR SQ SCH (09:38)
--- NOTE | 2024-04-16 13:17 | Hospitalist Progress Note ---
Date of Service April 16, 2024 Assessment & Plan (1) Bradycardia: Plan: Right shoulder pain Osteoarthritis of AC joint Likely secondary to musculoskeletal/osteoarthritis --R shoulder X ray:No acute fracture or dislocation. Moderate osteoarthritis of the AC joint. Continue sling for comfort Appreciate orthopedics input: No urgent surgical intervention needed at this time Advised to follow-up with orthopedics on discharge Plan to discharge on oral steroids Transient Bradycardia Likely vasovagal reaction Mild coronary artery calcification in the circumflex coronary artery Lyme screen negative -ECHO: Normal left ventricle wall thickness. No regional wall motion abnormality. Left ventricle systolic pressure is normal. EF 60 to 65%. Right ventricle is normal in size and function. No significant valvular disease -Chest CTA Normal TSH -Bradycardia resolved Appreciate cardiology input Cardiology recommends to follow-up with a local kicking machine operator in his hometown for possible need for starting on aspirin, statin based on further workup Past tobacco abuse DVT Px: Lovenox SQ Code Status Full code Disposition Home Admission and Anticipated Discharge Date Admission Date: April 16, 2024 Subjective Patient is seen and examined at bedside Right shoulder pain is controlled, has decreased ROM Offers no other complaints Denies any nausea, vomiting, dizziness, chest pain, dyspnea Discussed with cardiology today Plan to discharge home today Review of Systems Review of Systems: All systems reviewed & are unremarkable except as noted in Subjective Physical Exam Physical Exam: Physical Exam: Vitals signs as noted above General Appearance:Moderately built and nourished, no apparent distress Head: normocephalic, Atraumatic Eyes: normal inspection, EOMI Neck: supple, Trachea midline Respiratory/Chest: Normal breath sounds, CTA, No accessory muscle use Cardiovascular: S1, S2, No murmur Abdomen/GI:Soft, Non tender, Bowel sounds present Extremities/Musculoskeletal:normal inspection, no edema, R shoulder decreased ROM due to Pain/tender Neurologic/Psych:AAOX3, grossly no focal neurological deficits Skin: normal color, warm Results & Data Results & Data Vital Signs (Past 12 Hours) Vital Signs Pulse Pulse Resp BP Pulse Ox Pulse Ox O2 Del Method 04/16/24 09:39 68 18 125/66 100 Room Air 04/16/24 07:03 63 04/16/24 04:00 69 19 128/77 96 Room Air 04/16/24 03:00 60 18 119/72 93 Room Air 04/16/24 02:32 96 06/04/24 02:00 58 L 18 143/79 H 97 Nasal Cannula O2 Del Method O2 Flow Rate 04/16/24 09:39 04/16/24 07:03 04/16/24 04:00 04/16/24 03:00 04/16/24 02:32 Room Air 04/16/24 02:00 2 Laboratory Results Short CBC 04/15/24 04/16/24 Range/Units 22:16 03:34 WBC 11.46 H 9.35 (4.8-10.8) K/ul Hgb 15.4 15.0 (14.0-18.0) g/dl Hct 43.4 43.4 (42.0-52.0) % Plt Count 269 256 (130-400) K/uL BMP 04/15/24 04/16/24 22:16 03:34 Sodium 137 135 L Potassium 3.7 4.2 Chloride 103 103 Carbon Dioxide 24 25 BUN 16 18 Creatinine 1.07 0.97 Glucose 130 H 144 H Calcium 9.2 8.8 Liver Function 04/15/24 Range/Units 22:16 Total Bilirubin 1.2 H (0.2-1.0) mg/dl AST 23 (13-39) U/L ALT 22 (7-52) U/L Alkaline Phosphatase 56 (34-104) U/L Albumin 4.5 (3.4-5.0) gm/dl
--- NOTE | 2024-04-16 13:22 | Discharge Summary ---
Date of Service April 16, 2024 Admission HPI Per Admitting Provider History obtained from patient and records. Medical history significant for past tobacco abuse. 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 Achy right shoulder pain radiating to the chest yesterday similar to rotator cuff tear on the left shoulder in the past. Possibly related to kayaking activity with family over the weekend. No shortness of breath, no fever, no chills no headache. Patient consulted ER last night. Patient became nauseous 30 minutes after Dilaudid administration at the ER. Heart rate 30s to 40s. Junctional bradycardia as per threat monitoring analyst Patient felt like he was going to pass out. Denies chest pain or SOB. Patient looked pale and diaphoretic as per staff. Patient currently comfortable. Heart rate 60s. 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 Admission Exam Per Admitting Provider GENERAL: Comfortable, pleasant, obese, no respiratory distress SKIN: Normal color, warm HEENT: Partial alopecia, pink palpebral conjunctivae, no ptosis, dry buccal mucosa NECK : Supple, no tenderness CHEST : CTA, no tenderness HEART : RRR, no obvious murmurs ABDOMEN: Some distention, nontender EXTREMITIES : No LE swelling/tenderness, sling over RUE, RUE shoulder tenderness NEUROLOGIC : Coherent, no facial asymmetry, no other gross focality Principal Diagnosis Right shoulder Osteoarthritis Transient Bradycardia Mild coronary artery calcification in the circumflex coronary artery Discharge Data Allergies Allergy/AdvReac Type Severity Reaction Status Date / Time hydromorphone [From Dilaudid] AdvReac Intermediate nausea Verified 04/16/24 05:11 Consultations 04/16/24 00:49 ED Decision to Admit Stat 04/16/24 02:00 Consult Orthopedic Surgery Routine 04/16/24 02:32 Consult Cardiology Routine Procedures Performed Laboratory Results WBC 9.35 K/ul (4.8-10.8) 04/16/24 03:34 RBC 4.88 M/uL (4.70-6.10) 04/16/24 03:34 Hgb 15.0 g/dl (14.0-18.0) 04/16/24 03:34 POC Hgb 15.6 g/dl (14.0-18.0) 04/15/24 22:44 Hct 43.4 % (42.0-52.0) 04/16/24 03:34 POC Hct 46 % (42-52) 04/15/24 22:44 MCV 88.9 fL (80.0-100.0) 04/16/24 03:34 MCH 30.7 pg (25.0-34.0) 04/16/24 03:34 MCHC 34.6 g/dL (32.0-36.0) 04/16/24 03:34 RDW Std Deviation 41.1 fL (36.4-46.3) 04/16/24 03:34 RDW Coeff of Carin 12.6 % (11.5-14.5) 04/16/24 03:34 Plt Count 256 K/uL (130-400) 04/16/24 03:34 MPV 9.5 fL (9.4-12.4) 04/16/24 03:34 Immature Gran % (Auto) 0.2 % 04/16/24 03:34 Neut % (Auto) 75.9 % 04/16/24 03:34 Lymph % (Auto) 16.3 % 04/16/24 03:34 [place] % (Auto) 7.2 % 04/16/24 03:34 Eos % (Auto) 0.2 % 04/16/24 03:34 Baso % (Auto) 0.2 % 04/16/24 03:34 Neut # (Auto) 7.10 K/uL (1.40-6.50) H 04/16/24 03:34 Lymph # (Auto) 1.52 K/uL (1.20-3.40) 04/16/24 03:34 [place] # (Auto) 0.67 K/uL (0.11-0.59) H 04/16/24 03:34 Eos # (Auto) 0.02 K/uL (0.00-0.50) 04/16/24 03:34 Baso # (Auto) 0.02 K/uL (0.00-0.20) 04/16/24 03:34 Immature Gran # (Auto) 0.02 K/uL (0.01-0.20) 04/16/24 03:34 POC Sodium 137 mmol/L (135-144) 04/15/24 22:44 Sodium 135 mmol/L (136-145) L 04/16/24 03:34 POC Potassium 4.1 mmol/L (3.3-5.0) 04/15/24 22:44 Potassium 4.2 mmol/L (3.5-5.1) 04/16/24 03:34 POC Chloride 103 mmol/L (101-112) 04/15/24 22:44 Chloride 103 mmol/L (98-107) 04/16/24 03:34 Carbon Dioxide 25 mmol/L (21-32) 04/16/24 03:34 POC Total CO2 24 mmol/L (24-31) 04/15/24 22:44 Anion Gap 7 (3-11) 04/16/24 03:34 POC Anion Gap 15.0 mmol/L (16-25) L 04/15/24 22:44 POC BUN 16 mg/dl (7-18) 04/15/24 22:44 BUN 18 mg/dl (6-23) 04/16/24 03:34 Creatinine 0.97 mg/dl (0.6-1.4) 04/16/24 03:34 POC Creatinine 1.0 mg/dl (0.6-1.3) 04/15/24 22:44 Est Cr Clr Drug Dosing 105.9 ml/min 04/16/24 03:34 Est GFR ( Amer) 102.9 ml/min 04/16/24 03:34 Est GFR (Non-Af Amer) 88.8 ml/min 04/16/24 03:34 BUN/Creatinine Ratio 18.6 (10-20) 04/16/24 03:34 Glucose 144 mg/dl (70-99(Fasting)) H 04/16/24 03:34 POC Glucose (other) 138 mg/dl (70-99) H 04/15/24 22:44 Estimat Average Glucose 108 mg/dl 04/16/24 Unknown Hemoglobin A1c 5.4 % (4.5-5.6) 04/16/24 Unknown Calcium 8.8 mg/dl (8.6-10.3) 04/16/24 03:34 POC Ioniz Calcium Alyx 1.18 mmol/l (1.12-1.32) 04/15/24 22:44 Magnesium 1.9 mg/dl (1.7-2.4) 04/15/24 22:16 Total Bilirubin 1.2 mg/dl (0.2-1.0) H 04/15/24 22:16 AST 23 U/L (13-39) 04/15/24 22:16 ALT 22 U/L (7-52) 04/15/24 22:16 Alkaline Phosphatase 56 U/L (34-104) 04/15/24 22:16 Troponin I High Sens < 2.3 pg/ml (0-20) 04/15/24 22:16 Total Protein 7.4 gm/dl (6.0-8.3) 04/15/24 22:16 Albumin 4.5 gm/dl (3.4-5.0) 04/15/24 22:16 Globulin 2.9 gm/dl (2.5-4.0) 04/15/24 22:16 Albumin/Globulin Ratio 1.6 (0.9-2) 04/15/24 22:16 Lipase 45 U/L (11-82) 04/15/24 22:16 TSH 1.124 uIu/ml (0.300-4.500) 04/15/24 22:16 Lyme Disease Screen Negative (Negative) 04/15/24 22:16 Impressions Chest X-Ray 04/15/24 22:12 XR chest 1V portable HISTORY: 54 years-old Male Chest pain, nonspecific COMPARISON: CTA chest of same day TECHNIQUE: AP view of the chest FINDINGS: Cardiomediastinal and hilar silhouettes are within normal limits. No pneumothorax, pleural effusion, airspace consolidation or pulmonary edema. Bones appear grossly intact. IMPRESSION: No acute process. ACT 112: Negative or not required by law. The above report was generated using voice recognition software. It may contain grammatical, syntax or spelling errors. Electronically signed by: Manuelito Rubin M.D. 04/16/2024 6:58 AM Shoulder X-Ray 04/15/24 22:35 XR shoulder RT min 2V routine HISTORY: 54 years-old Male pain acute pain of the right shoulder without reported trauma COMPARISON: CTA chest of same day TECHNIQUE: 2 views of the right shoulder FINDINGS: Moderate degeneration of the AC joint. No significant glenohumeral osteoarthritis. No acute fracture, dislocation or osseous erosion. The imaged lung giang appear clear. IMPRESSION: 1. No acute fracture or dislocation. 2. Moderate osteoarthritis of the AC joint. ACT 112: Negative or not required by law. The above report was generated using voice recognition software. It may contain grammatical, syntax or spelling errors. Electronically signed by: Manuelito Rubin M.D. 04/16/2024 7:05 AM Chest CTA 04/15/24 22:41 Exam(s): CTA CHEST W/WO Contrast IV Amt: 120 ML OPTIRAY 320 EXAM: CT Angiography Chest Without and With Intravenous Contrast CLINICAL HISTORY: Reason for exam: Dissection, R shoulder/neck pain. TECHNIQUE: Axial computed tomographic angiography images of the chest without and with intravenous contrast. CTDI is 28 mGy and DLP is 1910 mGy-cm. Automated exposure control was utilized for the study. A dose lowering technique was utilized adhering to the principles of ALARA. MIP reconstructed images were created and reviewed. CONTRAST: Patient received 120 ML OPTIRAY 320 of IV contrast COMPARISON: No relevant prior studies available. FINDINGS: Pulmonary arteries: Adequate pulmonary artery opacification. Borderline enlarged central pulmonary artery suggesting mild pulmonary arterial hypertension. No evidence of pulmonary embolism. Aorta: No aortic intramural hematoma, aneurysm, or dissection. Bovine aortic arch branch anatomy with patent great vessels. Lungs: Unremarkable. No airspace consolidation. No pulmonary mass. Pleural space: Unremarkable. No pleural effusion. No pneumothorax. Heart: No cardiomegaly. Coronary artery atherosclerosis. No significant RV strain. No pericardial effusion. Thyroid: Unremarkable. Normal thyroid gland. Bones/joints: No acute fracture. No dislocation. Soft tissues: Unremarkable. Lymph nodes: Unremarkable. No lymphadenopathy. Liver: Multiple benign hepatic cysts. Additional subcentimeter hepatic lesions which are too small to characterize. IMPRESSION: No acute findings. No evidence of aortic aneurysm or dissection. Electronically signed by: Bartolo Bullock M.D. 04/15/24 23:23 PM Ordered Studies 04/15/24 22:41 CTA chest dissec wo/w con [CT angio chest dissec wo/w con] Stat Hospital Course (1) Bradycardia: Right shoulder pain Osteoarthritis of AC joint Likely secondary to musculoskeletal/osteoarthritis --R shoulder X ray:No acute fracture or dislocation. Moderate osteoarthritis of the AC joint. Continue sling for comfort Appreciate orthopedics input: No urgent surgical intervention needed at this time Advised to follow-up with orthopedics on discharge Plan to discharge on oral steroids Transient Bradycardia Likely vasovagal reaction Mild coronary artery calcification in the circumflex coronary artery Lyme screen negative -ECHO: Normal left ventricle wall thickness. No regional wall motion abnormality. Left ventricle systolic pressure is normal. EF 60 to 65%. Right ventricle is normal in size and function. No significant valvular disease -Chest CTA Normal TSH -Bradycardia resolved Appreciate cardiology input Cardiology recommends to follow-up with a local director of community center in his hometown for possible need for starting on aspirin, statin based on further workup Past tobacco abuse DVT Px: Lovenox SQ Code Status Full code Disposition Home Total Time Total Time Spent Total Time Spent (In Minutes): 43 minutes Discharge Plan Discharge Items Patient Disposition: Home - Self-Care Reason For Visit: TRANSIENT BRADYCARDIA Discharge Diagnosis: Right shoulder Osteoarthritis Transient Bradycardia Mild coronary artery calcification in the circumflex coronary artery Activity: Per Instructions section Exercise/Sports: Wait until after follow-up appointment Non-emergency contact: Primary Care Provider and Event Coordinator Call non-emergency contact if: you have any medication questions, your pain is concerning for you and you have a fever Follow-up/Referrals: Keenan Brito MD [Primary Care Provider] - Diet: Heart Healthy Addtl Attending Provider Instructions: Follow-up with your primary care physician in 1 week Follow-up with your director of community center for further evaluation of coronary artery disease as recommended. Follow-up with your orthopedic surgeon for further evaluation of your right shoulder as advised --Complete the Medrol Dosepak course as prescribed. -- Can continue to use sling for right shoulder comfort Seek immediate medical attention if your symptoms reoccur or worsen Please take all medications as instructed on discharge list below. Please call if you have any questions or problems. You can reach a [facility] hospitalist on duty at [facility] 24 hours a day by calling [phone] Pending Studies at Discharge: No Stand-Alone Forms: My [facility] [employer], Smoking Cessation Medications and DC Order Prescriptions: New methylprednisolone [Medrol ([place])] 4 mg tablets,dose pack 4 mg PO UD Qty: 21 0RF Rx Instructions: As directed Discharge Orders: Discharge Order (Routine); Ordered 04/16/24 Ordered By: Antonio Bowman Admission Data Admit Date/Time: 06/04/24 01:57 Attending Provider: Antonio Bowman Admit Provider: Carroll Oh Primary Care Provider: Keenan Brito Other Providers: Carroll Oh; Isai Finney; Cassie Ceballos; Russell Thompson; [place] B[place]; Luis Snider; Tristian Corbin; Luis Grant; Steffi Romo; Shirlene Hendricks; Chelly Carver; Cassie Dempsey; Victor Hugo Pratt; Jose Luis Rouse; Karyn Berumen; Lora Gastelum; Cuca Lucas; Antwan Mccall; Rakesh Braswell; Yady Brian
--- NOTE | 2024-04-17 22:45 | Electrocardiogram Report ---
Test Reason : Blood Pressure : / mmHG Vent. Rate : 067 BPM Atrial Rate : 067 BPM P-R Int : 192 ms QRS Dur : 088 ms QT Int : 394 ms P-R-T Axes : 034 062 036 degrees QTc Int : 416 ms Normal sinus rhythm Normal ECG No previous ECGs available Confirmed by Mina Montoya ([id number]) on 04/17/2024 10:45:10 PM Referred By: REFERRED SELF Confirmed By:Mina Montoya
== END 2024-04-16 14:50 | disposition home or self-care (01) ==
LOC: EDINP 22:03 → ED 22:03 → EDINP 04-16 02:33